=== PATIENT | male | born 1965 | race Caucasian/White ===

== ENCOUNTER 2024-10-13 15:38 | Emergency (ER) | payer BC, SELFPAY ==
[2024-10-13 15:42] VITALS: BP 128/89
--- NOTE | 2024-10-13 18:16 | ED.GENMED ---
History of Present Illness
General
Chief Complaint: Cold/Flu/URI Symptoms
Time Seen by Provider: 10/13/24 17:38
History of Present Illness
History of Present Illness:
Patient is a 59-year-old man presenting to the emergency department URI symptoms. He states that 1 week ago he was diagnosed with influenza A. Symptoms were improving however this morning he developed a fever up to 104. His cough has been
productive and it did worsen this morning. Otherwise his congestion and sore throat has been improving. He has been eating and drinking like normal. No recent sick contacts. No nausea or vomiting. No abdominal pain. He is not currently on any
antiantibiotics or antivirals
Past History
Past History
ED Past Medical History: HTN and Other (Mediastinal tumor)
ED Past Surgical History: None
Patient has exhibited threatening behavior?: No
Social History
Tobacco: Non-smoker
Alcohol: Occasional
Personal:
Living: with family
Employment: Employed
Phy Exam
Physical Exam
Physical Exam:
GENERAL: in no acute distress
HEENT: normocephalic, extraocular movements intact, moist oral mucosa
NECK: normal inspection
RESPIRATORY: no respiratory distress, crackles at base
CARDIOVASCULAR: regular rate and rhythm
ABDOMEN/: soft, non-distended, non-tender to palpation, no rebound or guarding
EXTREMITIES: non-tender, no edema/swelling
NEUROLOGIC: awake and alert, moves all extremities
SKIN: warm
Sepsis
Sepsis Screening
Sepsis Assessment: Sepsis Ruled Out
Sepsis Screen
Sepsis Screen: Sepsis Ruled Out
Date: 10/13/24
Time: 20:08
Course
Orders/Labs/Results
Orders:
Orders
10/13/24 17:45
CR Chest - 2 Views Urgent
Comment:
Reason For Exam: cough
10/13/24 19:42
Acetaminophen [Tylenol] 1,000 mg PO NOW STA
10/13/24 19:47
Azithromycin [Zithromax] 500 mg PO NOW STA
Cefuroxime Axetil [Ceftin] 500 mg PO NOW STA
10/13/24 20:08
Cefuroxime Axetil [Ceftin] 500 mg PO NOW STA
Vital Signs
Initial and Last Documented VS:
Initial Vital Signs
Temp Pulse Resp BP Pulse Ox
99.2 F 86 16 128/89 98
10/13/24 15:42 10/13/24 15:42 10/13/24 15:42 10/13/24 15:42 10/13/24 15:42
Last Documented Vital Signs
Temp Pulse Resp BP Pulse Ox
100.9 F H 91 18 148/64 97
10/13/24 18:42 10/13/24 20:02 10/13/24 20:02 10/13/24 20:02 10/13/24 20:02
MDM/Problems Addressed
Differential Diagnosis Includes:
Patient is a 59-year-old man presenting to the emergency department recently diagnosed with the flu and now with worsening fever and cough. Vitals are notable for being afebrile. On exam he does have crackles in the bases left worse than the
right. Concern for superimposed pneumonia versus COVID versus other viral illness. No exam or history findings suggest other etiology of infection such as UTI or skin infection. Will obtain chest x-ray. I did offer COVID swab however patient
declined at this time as patient's who also has similar symptoms tested negative for COVID.
*Critical Care Note
Total Time (30-74mins, 75-104mins- exclusive of procedures): Not Applicable
Update Note
Update Note:
Chest x-ray per my interpretation left-sided pneumonia. Will treat with antibiotics and give first dose here. Ambulatory pulse ox normal. Of note patient did spike a fever prior to discharge. I did give Tylenol and offered patient to be observed
until fever resolved however he would prefer to go home and he will check his temperature at home. Patient is medically stable for outpatient treatment. Strict return precautions given.
ED Attending Note
-
Portions of this chart may have been created with voice recognition software.� Occasional wrong word or��sound alike� substitutions may have occurred due to the inherent limitations of voice recognition software.
Discharge Plan
Departure
Patient Disposition: Home (Routine Discharge)
Date of Disposition: 10/13/24
Time of Disposition: 20:06
Patient with high blood pressure during this ER visit?: No
Discharge Problem:
Pneumonia
Instructions: Pneumonia in adults - ED discharge instructions
Prescriptions:
New
azithromycin [Zithromax] 250 mg tablet
250 mg PO DAILY Qty: 4 0RF
cefuroxime axetil 500 mg tablet
500 mg PO BID 7 Days Qty: 14 0RF
No Action
fluoxetine 20 MG capsule
20 mg PO DAILY
atenolol 50 MG tablet
50 mg PO HS
apixaban [Eliquis] 5 MG tablet
5 mg PO BID Qty: 60 0RF
Referrals:
Danny Jama DO [Family Provider] -
Activity Restrictions/Additional Instructions:
We discussed medications:
You may take Tylenol (also known as Acetaminophen) for fever.
You may take 1000mg Acetaminophen (two extra-strength tablets) per dose, which should be taken every 6-8 hours, or three times a day.
If you have normal strength Tylenol, you can take 650mg (two normal strength tablets) every 4-6 hours.
Do not take more than 3,000mg (3 grams) of Acetaminophen per day.
Never take more than as directed on the bottle.
You may also take Ibuprofen (also known as Motrin or Advil). If taking with Tylenol, alternate and take between dosing.
You may take 400-800mg of Ibuprofen per dose, which should be taken every 6-8 hours.
Do not take more than 3200mg (3.2 grams) of Ibuprofen per day.
Alternatively, you may alternate the Tylenol and Motrin every 4 hours to control symptomatic fever. For example, give Tylenol and then 4 hours later give Motrin and then 4 hours later give Tylenol. Do not give more than 5 doses of Tylenol in a 24
hour period.
Please see your primary care doctor soon to be reevaluated and to make sure that you are improving. We have included information about establishing care with a doctor if you do not have one.
We talked about your evaluation, diagnosis, and treatment in the Emergency Department today. You must see your primary doctor for recheck and followup care in order to evaluate your progress or any changes. Have your doctor recheck the test
results/information from the ED visit. As discussed, RETURN to the ED if you develop worsening/changing symptoms or have no improvement in symptoms after the treatments provided.
Interventions
Interventions:
*Risk Screen - Suicide Last Done: 10/13/24 15:41
*General Assessment Last Done: 10/13/24 18:39
*Neglect/Abuse Screening Last Done: 10/13/24 15:41
ED- Fall Risk Assessment Last Done: 10/13/24 18:40
*ED COVID-19 Vaccine History Last Done: 10/13/24 18:39
ED- Pulmonary Assessment Last Done: 10/13/24 19:14
Discharge Date and Time
Print Language: AZERI
--- NOTE | 2024-10-13 18:37 | EDRN ---
Pt states he is fighting influena A. Test was done 2-3 days ago at home. Pt arrives for high fever of 104.
[2024-10-13 18:38] VITALS: BMI 30.5
[2024-10-13 18:42] VITALS: BP 141/80
[2024-10-13 20:02] VITALS: BP 148/64
--- NOTE | 2024-10-13 20:03 | EDRN ---
Pt. ambulated around nursing station w/ steady gait, ambulatory pulse ox. remained >96% on RA, pt. w/o dyspnea on exertion.
[2024-10-13] MEDS: ZITHROMAX 500 MG PO (20:15)
[2024-10-13] MEDS: CEFTIN 500 MG PO (20:15)
[2024-10-13] MEDS: TYLENOL 1000 MG PO (20:16)
== END 2024-10-13 20:19 | disposition home or self-care (01) ==
LOC: EMR 15:38
PROVIDERS: EMERGENCY PHYSICIAN Student in an Organized Health Care Education/Training Program; FAMILY PHYSICIAN Family Medicine
DX: J18.9 Pneumonia, unspecified organism (principal); J02.9 Acute pharyngitis, unspecified; J10.1 Influenza due to other identified influenza virus with other respiratory manifestations; I10 Essential (primary) hypertension; Z79.01 Long term (current) use of anticoagulants
CPT/HCPCS: 99283; 71046

== ENCOUNTER 2024-10-16 05:09 | Emergency (ER) | payer BC, SELFPAY ==
[2024-10-16 05:49] LABS: % Basophils 0.2 % (0-2); % Immature Granulocytes 0.5 % (0-0.5); % Lymphocytes 13.2 % (20.5-51.1); % Monocytes 8.1 % (1.7-9.3); Absolute Lymphocytes 0.6 10^3/uL (1.2-3.4); Absolute Monocytes 0.4 10^3/uL (0.1-0.6); Absolute Neutrophils 3.4 10^3/uL (1.4-6.5); Hematocrit 39.6 % (39.0-52.0); Hemoglobin 13.1 g/dL (13.0-18.0); Mean Corp Hgb Conc. 33.1 g/dL (33.0-37.0); Mean Corpuscular Hgb 29.9 pg (27.0-31.0); Mean Corpuscular Volume 90.4 fL (80.0-94.0); Mean Platelet Volume 9.1 fL (7.4-10.4); Nucleated Red Blood Cells % 0 % (-); Platelet Count 189 10^3/uL (130-400); Red Blood Cell Count 4.38 10^6/uL (4.70-6.10); Red Cell Dist. Width 12.1 % (11.5-14.5); White Blood Cell Count 4.3 10^3/uL (4.8-10.8)
[2024-10-16 06:05] LABS: ALT (SGPT) 33 U/L (0-50); AST (SGOT) 54 U/L (17-59); Albumin 3.8 g/dl (3.5-5.0); Alkaline Phosphatase 61 U/L (38-126); Blood Urea Nitrogen 14 mg/dl (9-20); Calcium 8.3 mg/dl (8.4-10.2); Carbon Dioxide 28 mmol/L (22-30); Chloride 99 mmol/L (98-107); Glucose 126 mg/dl (70-99); Potassium 3.8 mmol/L (3.5-5.1); Sodium 136 mmol/L (135-145); Total Bilirubin 0.4 mg/dl (0.2-1.3); Total Protein 6.3 g/dl (6.3-8.2); eGFR > 60.00
--- NOTE | 2024-10-16 09:04 | ED.GENMED ---
History of Present Illness
General
Chief Complaint: Dehydration Symptoms
Source: patient
Exam Limitations: none
Time Seen by Provider: 10/16/24 09:03
Nursing documentation reviewed up to this point in time: agreed with
History of Present Illness
History of Present Illness:
59 yo male with h/o fainting episodes, HTN, depression, Flu A diagnosed 10/08. PNA dx 10/13 treated w Cefuroxime and Zithromax presents for cough no better (states no worse), feels dehydrated, fainted on toilet this a.m. while urinating, denies and
injury from fall. Denies CP, SOB, abdominal pain. Denies n/v/d/c. Appetite has been decreased but drinking well.
Past History
Past History
ED Past Medical History: HTN, Other (Mediastinal tumor) and Other (Micturition syncope)
ED Past Surgical History: None
Patient has exhibited threatening behavior?: No
Social History
Tobacco: Non-smoker
Alcohol: Occasional
Personal:
Living: with family
Employment: Employed
Review of Systems
Review of Systems
Allergies reviewed?: Yes
All Other Systems: ROS reviewed and negative except as documented in HPI and ROS
Constitutional: Reports fatigue; Denies fever
EENT: Denies sore throat
Respiratory: Reports cough; Denies trouble breathing
Cardiac: Denies chest pain
ABD/GI: Reports anorexia; Denies abdominal pain, nausea, vomiting or diarrhea
: Denies dysuria, frequency or difficulty voiding
Musculoskeletal: Reports no symptoms
Skin: Reports no symptoms
Neurological: Reports no symptoms
Phy Exam
Physical Exam
Physical Exam:
GENERAL: No acute distress. A&Ox3.
CONSTITUTIONAL: Afebrile.
EYES: clear, conjunctivae normal
ENMT: moist mucus membranes, Pharynx nl
RESPIRATORY: Regular respirations, nonlabored, lungs clear.
CARDIOVASCULAR: Regular rate and rhythm, no murmurs, no rubs.
GI: Soft, nontender, normal BS
MUSCULOSKELETAL: Moves with ease. Well perfused.
SKIN: Warm, dry, pink
PSYCH: Normal mood and affect. Well kept, interactive and appropriate
NEUROLOGIC: Awake, alert and oriented. No focal neurological deficits
Course
Orders/Labs/Results
Orders:
Orders
10/16/24 05:27
EKG [Electrocardiogram (*1)] Urgent
Reason for Study: Fatigue / Weakness
EKG- Treatment ONCE
10/16/24 05:39
Complete Blood Count/With Diff Urgent
Comprehensive Metabolic Panel Urgent
10/16/24 09:14
0.9% Sodium Chloride 1000 ml [Nss] 1,000 ml IV BOLUS
10/16/24 09:58
COVID-19 Antigen Urgent
Source: Nasal Swab
Abnormal Lab Results
10/16/24
05:39
WBC 4.3 L 10^3/uL
(4.8-10.8)
RBC 4.38 L 10^6/uL
(4.70-6.10)
Absolute Lymphs (auto) 0.6 L 10^3/uL
(1.2-3.4)
Neutrophils % 78.0 H %
(42.2-75.2)
Lymphocytes % 13.2 L %
(20.5-51.1)
Glucose 126 H mg/dl
(70-99)
Calcium 8.3 L mg/dl
(8.4-10.2)
10/16/24 05:39
10/16/24 05:39
Vital Signs
Initial and Last Documented VS:
Initial Vital Signs
Temp Pulse Resp BP Pulse Ox
98.6 F 59 14 113/73 97
10/16/24 05:24 10/16/24 05:24 10/16/24 05:24 10/16/24 05:24 10/16/24 05:24
Last Documented Vital Signs
Temp Pulse Resp BP Pulse Ox
98.6 F 59 14 113/73 97
10/16/24 05:24 10/16/24 05:24 10/16/24 05:24 10/16/24 05:24 10/16/24 05:24
MDM/Problems Addressed
Differential Diagnosis Includes:
micturition syncope, dehydration, vasovagal episode
MDM/Problems Addressed:
59 yo male with h/o fainting episodes, HTN, depression, Flu A diagnosed 10/08. PNA dx 10/13 treated w Cefuroxime and Zithromax presents for cough no better (states no worse), feels dehydrated, fainted on toilet 2 days ago and again this a.m. while
urinating, denies and injury from fall. Denies CP, SOB, abdominal pain. Denies n/v/d/c. Appetite has been decreased but drinking well.
Temp 98.6 NAD
Lungs CTA. Pulse ox 97% RA, no tachycardia.
CBC, CMP unremarkable
Plan: give Liter of fluid, reassure blood work normal, continue antibiotics prescribed. Change positions slowly
Pt and deny history of micturition syncope but it is in his external medical record ant both episodes in past 2 days were during urinating while sitting on toilet
10:30 AM:
After IV fluids patient states he is feeling a lot better.
Stable for discharge.
Pt observed ambulating out with normal gait at discharge
*Critical Care Note
Total Time (30-74mins, 75-104mins- exclusive of procedures): Not Applicable
ED Attending Note
-
Portions of this chart may have been created with voice recognition software.� Occasional wrong word or��sound alike� substitutions may have occurred due to the inherent limitations of voice recognition software.
Discharge Plan
Departure
Patient Disposition: Home (Routine Discharge)
Date of Disposition: 10/16/24
Time of Disposition: 10:42
Patient with high blood pressure during this ER visit?: No
Condition: Good
Discharge Problem:
Syncope
Instructions: Fainting in adults - ED discharge instructions
Prescriptions:
No Action
fluoxetine 20 MG capsule
20 mg PO DAILY
atenolol 50 MG tablet
50 mg PO HS
apixaban [Eliquis] 5 MG tablet
5 mg PO BID Qty: 60 0RF
azithromycin [Zithromax] 250 mg tablet
250 mg PO DAILY Qty: 4 0RF
cefuroxime axetil 500 mg tablet
500 mg PO BID 7 Days Qty: 14 0RF
Referrals:
Danny Jama DO [Family Provider] - As needed
Activity Restrictions/Additional Instructions:
As we discussed, drink at least 8 eight ounce glasses water/fluid daily
Your medical records have 'micturition syncope' listed, so be sure to urinate sitting.
Change positions from laying to sitting to standing slowly, waiting at least 30 seconds between each position.
Continue your antibiotics as ordered.
Interventions
Interventions:
*Risk Screen - Suicide Last Done: 10/16/24 05:24
*General Assessment Last Done: 10/16/24 05:24
*Neglect/Abuse Screening Last Done: 10/16/24 05:24
ED- Fall Risk Assessment Last Done: 10/16/24 11:21
*Nursing Disposition Last Done: 10/16/24 11:21
ED- Cardiac Assessment Last Done: 10/16/24 11:18
ED- Neurological Assessment Last Done: 10/16/24 11:18
ED- Pulmonary Assessment Last Done: 10/16/24 11:18
Discharge Date and Time
Discharge Date/Time: 10/16/24 11:22
Print Language: [id number]
[2024-10-16] MEDS: NSS 1000 IV (09:45)
[2024-10-16 10:20] LABS: COVID-19 Antigen Negative (Negative)
== END 2024-10-16 11:22 | disposition home or self-care (01) ==
LOC: EMR 05:09
PROVIDERS: Registered Nurse; Student in an Organized Health Care Education/Training Program; EMERGENCY PHYSICIAN Emergency Medicine; FAMILY PHYSICIAN Family Medicine
DX: R55 Syncope and collapse (principal); I10 Essential (primary) hypertension; F32.A Depression, unspecified
CPT/HCPCS: 99283; 80053; 85025; 87811; 93005

== ENCOUNTER 2025-06-30 12:41 | Emergency (ER) | payer BC, SELFPAY ==
[2025-06-30] VITALS (7 sets, daily range): BP systolic 146–179; BP diastolic 81–98; PULSE 57–58
[2025-06-30 13:02] LABS: Hematocrit 41.9 % (39.0-52.0); Hemoglobin 13.7 g/dL (13.0-18.0); Mean Corp Hgb Conc. 32.7 g/dL (33.0-37.0); Mean Corpuscular Volume 90.9 fL (80.0-94.0); Nucleated Red Blood Cells % 0 % (-); Platelet Count 212 10^3/uL (130-400); Red Cell Dist. Width 12.1 % (11.5-14.5)
[2025-06-30 13:19] LABS: ALT (SGPT) 36 U/L (0-50); AST (SGOT) 33 U/L (17-59); Albumin 5.0 g/dl (3.5-5.0); Alkaline Phosphatase 52 U/L (38-126); Blood Urea Nitrogen 15 mg/dl (9-20); Calcium 9.6 mg/dl (8.4-10.2); Carbon Dioxide 28 mmol/L (22-30); Chloride 106 mmol/L (98-107); Glucose 116 mg/dl (70-99); Potassium 4.8 mmol/L (3.5-5.1); Sodium 139 mmol/L (135-145); Total Protein 7.3 g/dl (6.3-8.2); eGFR > 60.00
[2025-06-30 13:29] LABS: Troponin I < 0.012 ng/ml
--- NOTE | 2025-06-30 14:21 | ED.GENMED ---
History of Present Illness
General
Chief Complaint: Fainting Sensation
Time Seen by Provider: 06/30/25 14:06
Nursing documentation reviewed up to this point in time: agreed with
History of Present Illness
History of Present Illness:
59-year-old male presents to the ER for evaluation of feeling of lightheadedness which has been pervasive since Friday. Patient denies headache but feels as though he has pressure on his head consistently since Friday. He has a feeling that he is
going to faint which seems to be improved when he is laying supine. He has been trying to drink less caffeine and more water over the past few days without any improvement in his symptoms. He has been taking his atenolol but states that he has
been on this blood pressure medicine since he was 28, no recent change in this dosing. In review of his prior medical history, it is listed that he was on an anticoagulant-he was on this medication during his treatment for non-Hodgkin's lymphoma
many years ago. He is no longer on anticoagulants. He denies any recent cough or cold symptoms. No vomiting or diarrhea. No change in urine output or color. He denies feeling of chest pain or palpitations. He denies any change in vision. No
focal weakness. No paresthesias.
Past History
Past History
ED Past Medical History: HTN, Other (Mediastinal tumor) and Other (Micturition syncope)
ED Past Surgical History: None
Patient has exhibited threatening behavior?: No
Social History
Tobacco: Non-smoker
Alcohol: Occasional
Personal:
Living: with family
Employment: Employed
Phy Exam
Physical Exam
Physical Exam:
Patient is awake, alert, appears in no acute distress, appears younger than stated age, wearing glasses, head is NCAT, PERRL, EOMI mucous membranes moist, conjunctiva pink, heart regular rate and rhythm without murmurs or ectopy, lungs are clear to
auscultation without wheezes rales or rhonchi, no JVD, abdomen is soft and nontender on palpation, extremities without edema, 2+ DP pulses present BLLE, GCS is 15, no dysdiadochokinesia, no ataxia, no pronator drift
Course
Orders/Labs/Results
Orders:
Orders
06/30/25 12:42
EKG [Electrocardiogram (*1)] Urgent
Reason for Study: Syncope
EKG- Treatment ONCE
06/30/25 12:55
Complete Blood Count/With Diff Urgent
Comprehensive Metabolic Panel Urgent
Troponin I Urgent
06/30/25 14:18
CT Head W/o Iv Contrast Urgent
Comment:
Reason For Exam: near syncope
CR Chest - 2 Views Urgent
Comment: h/o nonhodgkins lymphoma in remission
Reason For Exam: near syncope
06/30/25 14:20
0.9% Sodium Chloride 1000 ml [Nss] 1,000 ml IV BOLUS
06/30/25 14:24
Orthostatic VS- Treatment ONCE
Abnormal Lab Results
06/30/25
12:55
RBC 4.61 L 10^6/uL
(4.70-6.10)
MCHC 32.7 L g/dL
(33.0-37.0)
Absolute Lymphs (auto) 0.9 L 10^3/uL
(1.2-3.4)
Neutrophils % 79.7 H %
(42.2-75.2)
Lymphocytes % 13.7 L %
(20.5-51.1)
Glucose 116 H mg/dl
(70-99)
06/30/25 12:55
06/30/25 12:55
CBC and chemistries are within normal limits. Troponin is also negative
Vital Signs
Initial and Last Documented VS:
Initial Vital Signs
Temp Pulse Resp BP Pulse Ox
98.0 F 66 16 179/98 98
06/30/25 12:47 06/30/25 12:47 06/30/25 12:47 06/30/25 12:47 06/30/25 12:47
Last Documented Vital Signs
Temp Pulse Resp BP Pulse Ox
98.0 F 66 16 146/93 100
06/30/25 12:47 06/30/25 12:47 06/30/25 12:47 06/30/25 16:26 06/30/25 16:45
MDM/Problems Addressed
Differential Diagnosis Includes:
Differential diagnosis to consider but not limited to electrolyte dyscrasia, anemia, intracranial mass, recurrent lymphoma along with other etiologies considered
Chronic conditions affecting care:
Prior history of lymphoma, previous syncope
*Radiology
Radiology exam reviewed: preliminary read by ED provider (I independently viewed and interpreted two-view chest x-ray showing no mass, no infiltrate, normal cardiac silhouette. I reviewed radiology interpretation which is in agreement)
*Pulse Oximetry
SaO2: 99
Oxygen Mode of Delivery: Room air
Patient hypoxic: no
*EKG
Interpreted by ED Provider?: Yes (I independently viewed and interpreted twelve-lead EKG showing normal sinus rhythm, rate 67, leftward axis, no ST elevation, T wave inversion in the inferior leads, no change compared to prior from 10/16/2024, no
evidence for acute ST elevation MN)
*Motor T[employer] Up Specialist Interpretation
Rate: normal (I independently viewed and interpreted rhythm strip showing normal sinus rhythm, no ectopy)
*Critical Care Note
Total Time (30-74mins, 75-104mins- exclusive of procedures): Not Applicable
Update Note
Update Note:
No need to repeat troponin as symptoms have been present for more than 24 hours and first is negative. No evidence for ischemia on EKG. Will add CT head and chest x-ray along with IV fluids for hydration given feeling of near syncope. Will also
check orthostatic vital signs. Patient and present at bedside agree with plan at current.
Full patient care transferred to Dr Nguyen at end of my shift pending [facility] for disposition. will prepare d/c paperwork in anticipation of normal study
ED Attending Note
-
Portions of this chart may have been created with voice recognition software.� Occasional wrong word or��sound alike� substitutions may have occurred due to the inherent limitations of voice recognition software.
Discharge Plan
Departure
Patient Disposition: Home (Routine Discharge)
Date of Disposition: 06/30/25
Time of Disposition: 16:42
Patient with high blood pressure during this ER visit?: Yes
Discharge Problem:
Near syncope
Instructions: Near Fainting (DC)
Prescriptions:
No Action
fluoxetine 20 MG capsule
20 mg PO DAILY
atenolol 50 MG tablet
50 mg PO HS
apixaban [Eliquis] 5 MG tablet
5 mg PO BID Qty: 60 0RF
azithromycin [Zithromax] 250 mg tablet
250 mg PO DAILY Qty: 4 0RF
cefuroxime axetil 500 mg tablet
500 mg PO BID 7 Days Qty: 14 0RF
Referrals:
NONE,* [Family Provider, Internal Medicine]
Activity Restrictions/Additional Instructions:
Please contact primary care physician to schedule appointment for reevaluation and further care. Return to the ER for any concerns
Interventions
Interventions:
*Risk Screen - Suicide Last Done: 06/30/25 12:47
*General Assessment Last Done: 06/30/25 13:45
*Neglect/Abuse Screening Last Done: 06/30/25 12:47
*ED- Fall Risk Assessment Last Done: 06/30/25 13:45
*ED COVID-19 Vaccine History Last Done: 06/30/25 13:45
*Nursing Disposition Last Done: 06/30/25 16:58
ED- Cardiac Assessment Last Done: 06/30/25 13:45
ED- Neurological Assessment Last Done: 06/30/25 13:45
Discharge Date and Time
Discharge Date/Time: 06/30/25 16:58
Print Language: [id number]
[2025-06-30] MEDS: NSS 1000 IV (14:35)
== END 2025-06-30 16:58 | disposition home or self-care (01) ==
LOC: EMR 12:41
PROVIDERS: Emergency Medicine; EMERGENCY PHYSICIAN Emergency Medicine
DX: R55 Syncope and collapse (principal); I10 Essential (primary) hypertension; C85.9A Non-Hodgkin lymphoma, unspecified, in remission
CPT/HCPCS: 99284; 96360; 70450; 71046; 80053; 84484; 85025; 93005